=== PATIENT | female | born 1940 | race Two or more races ===

== ENCOUNTER 2017-10-21 08:00 | Inpatient (IN) | payer OTHER ==
[~2017-10-21] VITALS: Ht 157.5 cm; Wt 56.2 kg
[2017-10-21] MEDS ORDERED: CATAFLAN PO (10:41)
[2017-10-21] MEDS ORDERED: PRILOSEC OTC20 MG PO (10:42)
[2017-10-21] MEDS ORDERED: [UNRECOGNIZED DRUG - OTHER] PO (10:43)
== END 2017-10-27 16:01 | DRG 470 ==
LOC: SURH 10-25 06:00 → O/R 10-25 06:00 → RECOVERY 10-25 07:00 → SURH 10-25 13:04 → SURG 10-26 12:08
PROVIDERS: Orthopaedic Surgery
PROC: 0SRC0J9 Replacement of Right Knee Joint with Synthetic Substitute, Cemented, Open Approach (ICD-10-PCS; principal; 2017-10-25 07:00)
DX: M17.11 Unilateral primary osteoarthritis, right knee (principal); D62 Acute posthemorrhagic anemia; M85.461 Solitary bone cyst, right tibia and fibula